=== PATIENT | male | born 1990 | race Caucasian/White ===

== ENCOUNTER 2025-08-02 16:42 | Emergency (ER) | payer BC, SELFPAY ==
[2025-08-02] MEDS ORDERED: Ondansetron PF 4 MG/2 ML Vial ONE (18:04)
[2025-08-02] MEDS ORDERED: Pantoprazole 40 MG VIAL ONE (18:07)
[2025-08-02 18:08] LABS: #Basophils 0.03 10x3/uL (0.0-0.2); #Eosinophils Less than 0.03 10x3/uL (0.0-0.7); #Monocytes 1.41 10x3/uL (0.11-0.59); #Neutrophils 12.30 10x3/uL (1.40-6.50); %Basophils 0.2 % (0.0-1.0); %Eosinophils 0.0 % (0.0-10.0); %Lymphocytes 8.4 % (21.0-51.0); %Monocytes 9.4 % (0.0-10.0); %Neutrophils 81.6 % (42.0-75.0); Hematocrit 48.0 % (42.0-52.0); Hemoglobin 16.6 g/dL (14.0-18.0); Mean Corpuscular Hemoglobin 30.7 pg (27.0-31.0); Mean Corpuscular Volume 88.9 fL (78.0-98.0); Platelet Count 314 10x3/uL (130-400); Red Blood Cell (RBC) Count 5.40 mill/uL (4.70-6.10); White Blood Cell (WBC) Count 15.06 10x3/uL (4.8-10.8)
[2025-08-02] MEDS ORDERED: Multivitamins, Adult 10 ML, Thiamine HCl 100 MG, Folic Acid 1 MG in Dextrose 5 %-0.45 %... IV SCH (18:15)
[2025-08-02 18:29] LABS: ALT (SGPT) 18 U/L (Less than 45); AST (SGOT) 37 U/L (11-34); Albumin 4.8 g/dL (3.1-4.5); Alkaline Phosphatase 77 U/L (40-110); Anion Gap 30 mmol/L (10-20); BUN (Urea Nitrogen) 14 mg/dL (8.9-20.6); Bilirubin, Total 1.1 mg/dL (0.3-1.2); CK (CPK) 106 U/L (30-200); Calc. Creatinine Clearance 0 mL/min (70-130); Calcium 10.1 mg/dL (7.8-10.44); Carbon Dioxide 33 mmol/L (22-29); Chloride 79 mmol/L (98-107); Globulin 3.8 g/dL (2.4-3.5); Glucose 199 mg/dL (70-105); Lipase 15 U/L (8-78); Magnesium 1.5 mg/dL (1.6-2.6); Potassium 3.0 mmol/L (3.5-5.1); Sodium 139 mmol/L (136-145)
[2025-08-02 18:30] LABS: Acetaminophen Less than 10 mcg/mL (Less than 10); Salicylate Less than 8.0 mg/dL (Less than 8.0)
[2025-08-02] MEDS ORDERED: NS 0.9% w/ 20 MEQ KCL 1,000 ML ONE (19:06)
[2025-08-02] MEDS ORDERED: Magnesium 2 GM/50 ML BAG (IN WATER) ONE (19:08)
[2025-08-02 20:49] LABS: Bacteria/HPF None Seen HPF (None Seen); CAUTI Indications for Culture Alt mental st,lethar; Glucose, Urine (Dipstick) Normal (Negative); Leukocyte Negative Leu/uL (Negative); Protein, Urine (Dipstick) 50 mg/dL (Neg-Trace); Specific Gravity, Urine Greater than 1.050 (1.002-1.036); WBC/HPF None Seen HPF (0-3)
[2025-08-02 20:50] LABS: Urine Culture Reflex No No
== END 2025-08-03 02:29 | disposition home or self-care (01) ==
LOC: ERS 16:42
DX: F10.239 Alcohol dependence with withdrawal, unspecified (principal); E86.0 Dehydration; E87.8 Other disorders of electrolyte and fluid balance, not elsewhere classified; F17.210 Nicotine dependence, cigarettes, uncomplicated; F17.290 Nicotine dependence, other tobacco product, uncomplicated
CPT/HCPCS: 36415; 71045; 74177; 80053; 80307; 81001; 82550; 83605; 83690; 83735; 84484; 85025; 93005; 94760; J2405; J2470; J3360; J3411; J3475; J3480; J7042